=== PATIENT | female | born 1955 | race Asian ===

== ENCOUNTER 2018-10-25 17:58 | Emergency (ER) | payer SELFPAY ==
[2018-10-25 18:46] VITALS: BP 153/97
--- NOTE | 2018-10-25 19:30 | UC ---
Complaint Female HPI - History Of Current Complaint Chief Complaint: UCGU Stated Complaint: PRIVATE ISSUE Time Seen by Provider: 10/25/18 18:42 Hx Last Menstrual Period: hysterectomy Pain Intensity: 0 - Allergies/Home Medications Allergies/Adverse Reactions: Allergies Allergy/AdvReac Type Severity Reaction Status Date / Time No Known Allergies Allergy Verified 10/25/18 18:47 Home Medications: Home Medications NK [No Home Medications Reported] 10/25/18 [History Confirmed 10/25/18] PMH/Surg Hx/FS Hx/Imm Hx - Surgical History Surgical History: Yes Surgery Procedure, Year, and Place: Bowel surgery in [place], resecetion in January 2018. Hysterectomy and removal of 1 ovary. appy - Social History Alcohol Use: None Substance Use Type: None Smoking Status (MU): Never Smoked Tobacco Physical Exam Vital Signs: Initial Vital Signs Temp 101 F 10/25/18 18:37 Pulse 91 10/25/18 18:37 Resp 16 10/25/18 18:37 BP 153/97 10/25/18 18:37 Pulse Ox 97 10/25/18 18:37 Complaint Female Dx - Course Course Of Treatment: febrile. Discharge - Discharge Plan Referrals: No Primary Care Phys,NOPCP [Primary Care Provider] -
[2018-10-25] MEDS ORDERED: Acetaminophen TAB* 325 MG PO ONE (19:44)
--- NOTE | 2018-10-25 19:44 | UC ---
Complaint Female HPI - HPI Summary HPI Summary: 63-year-old woman comes in with a chief complaint of 4 days of vaginal bleeding. She reports is a small amount. Is also had some back pain. Here in clinic she has a fever. She has a history of a hysterectomy more than 20 years ago. Denies any abdominal pain. Patient does not speak [place]ian. Her daughter is interpreting for her. It's difficult to find out whether or not she has urinary burning or frequency. - History Of Current Complaint Chief Complaint: UCGU Stated Complaint: PRIVATE ISSUE Time Seen by Provider: 10/25/18 18:42 Hx Last Menstrual Period: hysterectomy Pain Intensity: 0 - Allergies/Home Medications Allergies/Adverse Reactions: Allergies Allergy/AdvReac Type Severity Reaction Status Date / Time No Known Allergies Allergy Verified 10/25/18 18:47 PMH/Surg Hx/FS Hx/Imm Hx Previously Healthy: Yes - Surgical History Surgical History: Yes Surgery Procedure, Year, and Place: Bowel surgery in [place], resecetion in January 2018. Hysterectomy and removal of 1 ovary. appy - Family History Known Family History: Positive: Non-Contributory - Social History Alcohol Use: None Substance Use Type: None Smoking Status (MU): Never Smoked Tobacco Review of Systems All Other Systems Reviewed And Are Negative: Yes Constitutional: Positive: Fever Skin: Positive: Negative Eyes: Positive: Negative ENT: Positive: Negative Respiratory: Positive: Negative Cardiovascular: Positive: Negative Gastrointestinal: Positive: Other - SEE HPI Genitourinary: Positive: Hematuria, Vaginal/Penile Discharge Motor: Positive: Negative Neurovascular: Positive: Negative Musculoskeletal: Positive: Negative Neurological: Positive: Negative Psychological: Positive: Negative Is Patient Immunocompromised?: No Physical Exam Triage Information Reviewed: Yes Appearance: No Pain Distress, Well-Nourished, Ill-Appearing - MILD Vital Signs: Initial Vital Signs Temp 101 F 10/25/18 18:37 Pulse 91 10/25/18 18:37 Resp 16 10/25/18 18:37 BP 153/97 10/25/18 18:37 Pulse Ox 97 10/25/18 18:37 Vital Signs Reviewed: Yes Eye Exam: Normal Eyes: Positive: Conjunctiva Clear Neck exam: Normal Neck: Positive: Supple Respiratory: Positive: Lungs clear, Normal breath sounds, No respiratory distress Cardiovascular: Positive: RRR Abdomen Description: Positive: Nontender, Soft, CVA Tenderness (R) - MILD, CVA Tenderness (L) - MILD Bowel Sounds: Positive: Present Musculoskeletal Exam: Normal Musculoskeletal: Positive: Strength Intact, ROM Intact Neurological Exam: Normal Neurological: Positive: Alert, Muscle Tone Normal Psychological Exam: Normal Psychological: Positive: Age Appropriate Behavior Skin Exam: Normal Complaint Female Dx - Course Course Of Treatment: I discussed the urine results with the patient and her daughter. Patient's had a hysterectomy. She has no abdominal pain. The patient reports the amount of blood in terms of drops. Given the leukocytosis and blood in the urine the most probable cause is a urinary tract infection especially given the fever and bilateral flank pain. Plan is to treat for urinary tract infection with Bactrim and have her follow-up with her primary care physician. If she continues to have any sort of vaginal bleeding that she will need a pelvic exam. If she has any worsening of condition feeling more ill sick any abdominal pain I let the patient and her daughter know that they need to go to the emergency department. - Differential Dx/Diagnosis Provider Diagnosis: UTI (urinary tract infection) Discharge - Sign-Out/Discharge Documenting (check all that apply): Patient Departure All imaging exams completed and their final reports reviewed: No Studies - Discharge Plan Condition: Stable Disposition: HOME Prescriptions: Sulfamethox/Trimethoprim DS* [Bactrim DS 800/160 TAB*] 1 tab PO BID #20 tab Patient Education Materials: Urinary Tract Infection in Women (ED) Referrals: [facility] [Outside] Additional Instructions: FOLLOW UP WITH YOUR DOCTOR. GO TO THE EMERGENCY DEPARTMENT FOR ANY WORSENING OF YOUR CONDITION; ABDOMINAL OR BACK PAIN, FEVER, YOU FEEL ILL OR QUESTIONS OR CONCERNS. - Billing Disposition and Condition Condition: STABLE Disposition: Home
== END 2018-10-25 19:54 | disposition home or self-care (01) ==
LOC: UCEAST 17:58
DX: N39.0 Urinary tract infection, site not specified (principal); M54.9 Dorsalgia, unspecified; Z90.710 Acquired absence of both cervix and uterus
CPT/HCPCS: 81003; 87086; 99202; A9270-GY; G0463

== ENCOUNTER 2018-11-04 12:23 | Emergency (ER) | payer SELFPAY ==
[2018-11-04 12:51] VITALS: BP 127/77
--- NOTE | 2018-11-04 12:54 | UC ---
Complaint Female HPI - HPI Summary HPI Summary: 63 yo female presents accompanied by daughter. Daughter is acting as a disposal operator as pt only speaks Japanese. They tell me that pt was seen 10 days ago for blood in her urine and dx'd with a UTI and placed on Bactrim. They are here today with questions regarding pt's treatment plan. The hematuria has resolved and she is feeling well and has no complaints. They ask if pt should be eating or drinking anything in particular or avoiding certain foods/drinks. Also wondering what to do if the hematuria returns. Denies fever, chills, SOB, chest pain, abdominal pain, n/v, dysuria, flank pain. - History Of Current Complaint Chief Complaint: UCGeneralIllness Stated Complaint: RECHECK UTI Time Seen by Provider: 11/04/18 12:54 Hx Obtained From: Patient, Family/Traffic Clerk Hx Last Menstrual Period: hysterectomy Severity Currently: None Pain Intensity: 0 - Allergies/Home Medications Allergies/Adverse Reactions: Allergies Allergy/AdvReac Type Severity Reaction Status Date / Time No Known Allergies Allergy Verified 11/04/18 12:42 PMH/Surg Hx/FS Hx/Imm Hx - Additional Past Medical History Additional PMH: None - Surgical History Surgical History: Yes Surgery Procedure, Year, and Place: Bowel surgery in [place], resecetion in January 2018. Hysterectomy and removal of 1 ovary. appy - in [place] - Family History Known Family History: Positive: Non-Contributory - Social History Lives: With Family Alcohol Use: None Substance Use Type: None Smoking Status (MU): Never Smoked Tobacco Review of Systems All Other Systems Reviewed And Are Negative: Yes Constitutional: Positive: Negative Skin: Positive: Negative Respiratory: Positive: Negative Cardiovascular: Positive: Negative Gastrointestinal: Positive: Negative Genitourinary: Positive: Negative Neurovascular: Positive: Negative Neurological: Positive: Negative Psychological: Positive: Negative Physical Exam - Summary Physical Exam Summary: GENERAL: NAD. WDWN. No pain distress. SKIN: No rashes, sores, lesions, or open wounds. NECK: Supple. Nontender. No lymphadenopathy. CHEST: CTAB. No r/r/w. No accessory muscle use. Breathing comfortably and in no distress. CV: RRR. Without m/r/g. Pulses intact. Cap refill <2seconds ABDOMEN: Soft. NTTP. No distention or guarding. Bowel sounds present NEURO: Alert. PSYCH: Age appropriate behavior. Triage Information Reviewed: Yes Vital Signs: Initial Vital Signs Temp 97.7 F 11/04/18 12:43 Pulse 69 11/04/18 12:43 Resp 16 11/04/18 12:43 BP 127/77 11/04/18 12:43 Pulse Ox 97 11/04/18 12:43 Laboratory Tests 11/04/18 12:59 POC Urine Color Yellow POC Urine Clarity Clear POC Urine pH 5.0 POC Ur Specif [place] <= 1.005 L POC Urine Protein Negative POC Ur Glucose (UA) Negative POC Urine Ketones Negative POC Urine Blood Trace-intact A POC Urine Nitrite Negative POC Urine Bilirubin Negative POC Urine Urobilinogen 0.2 POC U Leukocyte Esteras Trace A Vital Signs Reviewed: Yes Complaint Female Dx - Course Course Of Treatment: Urine culture did not have any growth from her UA 10 days ago, however she was treated with Bactrim and her symptoms have resolved. All questions answered and advised to f/u if symptoms return - Differential Dx/Diagnosis Provider Diagnosis: UTI (urinary tract infection) Discharge - Sign-Out/Discharge Documenting (check all that apply): Patient Departure All imaging exams completed and their final reports reviewed: No Studies - Discharge Plan Condition: Stable Disposition: HOME Patient Education Materials: Urinary Tract Infection in Women (DC) Referrals: No Primary Care Phys,NOPCP [Primary Care Provider] - Additional Instructions: If you develop a fever, shortness of breath, chest pain, new or worsening symptoms - please call your PCP or go to the ED. Finish your antibiotic. No restrictions on your diet or activities. If your symptoms return - please be rechecked - Billing Disposition and Condition Condition: STABLE Disposition: Home
== END 2018-11-04 13:18 | disposition home or self-care (01) ==
LOC: UCEAST 12:23
DX: N39.0 Urinary tract infection, site not specified (principal)
CPT/HCPCS: 81003; 87086; 99211; G0463